=== PATIENT | female | born 1965 | race Caucasian/White ===

== ENCOUNTER 2020-08-18 08:17 | Outpatient (REF) | payer OTHER, SELFPAY ==
--- NOTE | 2020-08-18 08:22 | MM_ITS ---
EXAMINATION: MM SCREENING DIGITAL BREAST TOMOSYNTHESIS, BILATERAL CLINICAL INFORMATION: Screening. Asymptomatic. The lifetime risk of breast cancer based on the Tyrer-Cuzick Model is 11.6%. COMPARISON: Mammography: December 01, 2018 and studies dating back to July 11, 2016 TECHNIQUE: Digital breast tomosynthesis is performed in both the craniocaudal and mediolateral oblique views along with computer-aided detection (CAD). Synthesized 2D images are generated from the tomosynthesis. FINDINGS: The breasts are almost entirely fatty (ACR BI-RADS breast composition Category a). There are no significant masses, abnormal calcifications, or other abnormalities. MM/MM tomosynthesis screening BI IMPRESSION: There are no significant changes from prior study. ASSESSMENT: BI-RADS 1: Negative RECOMMENDATION: Routine annual mammography screening. This patient's information was entered into a reminder system with a target due date for their next mammogram.
== END 2020-08-18 08:18 | disposition home or self-care (01) ==
LOC: HO.MAMMO 08:17
PROVIDERS: PCP Internal Medicine; Visit Provider Internal Medicine
DX: Z12.31 Encounter for screening mammogram for malignant neoplasm of breast (principal)
CPT/HCPCS: 77063; 77067

== ENCOUNTER 2020-09-26 07:16 | Outpatient (REF) | payer OTHER, SELFPAY ==
[2020-09-26 11:16] LABS: MANUAL DIFF FLAG NO
[2020-09-26 11:33] LABS: Basophils Percent Auto 0.4 % (0-2); Eosinophils Absolute Auto 0.2 X10*3/uL (0.0-0.4); Eosinophils Percent Auto 3.3 % (0-4); Hematocrit 31.5 % (37-47); Imm Gran Abs Auto 0.02 X10*3/uL (0.00-0.03); Imm Gran Pct Auto 0.4 % (0.0-0.4); Lymphocytes Absolute Auto 2.1 X10*3/uL (1.2-4.9); Lymphocytes Percent Auto 40.7 % (20-40); Mean Corpuscular HGB Conc 31.7 g/dl (31.0-35.0); Mean Corpuscular Hemoglobin 29.4 pg (27.0-33.0); Mean Corpuscular Volume 92.6 fL (80-98); Mean Platelet Volume 10.2 fL (9.4-12.3); Monocytes Absolute Auto 0.3 X10*3/uL (0.1-1.2); Monocytes Percent Auto 5.6 % (2-11); Neutrophils Absolute Auto 2.6 X10*3/uL (2.0-8.3); Neutrophils Percent Auto 49.6 % (45-73); Platelet Count 331 X10*3/uL (160-400); Red Cell Distribution Width 14.6 % (11.0-16.0); White Blood Count 5.1 X10*3/uL (4.8-10.8)
[2020-09-26 11:55] LABS: Alanine Aminotransferase 18 U/L (0-31); Alkaline Phosphatase 107 U/L (39-117); Anion Gap 11 (12-20); Aspartate Amino Transferase 19 U/L (5-31); Bilirubin Total 0.4 mg/dL (0.0-1.0); Blood Urea Nitrogen 14 mg/dL (9-16); Calcium 8.8 mg/dL (8.4-10.2); Carbon Dioxide 31 mmol/L (22-29); Chloride 102 mmol/L (96-108); Cholesterol 191 mg/dL; Estimated Glomerular Filt Rate > 60; Glucose Fasting 93 mg/dL (60-99); HDL Cholesterol 62 mg/dL; LDL Cholesterol Calculated 114 mg/dl; Potassium 4.8 mmol/l (3.3-5.1); Sodium 139 mmol/L (135-145); Total Protein 7.2 g/dL (6.5-8.0); Triglycerides 78 mg/dL
[2020-09-26 12:06] LABS: Glucose Urine UA NEG (NEG); Leukocyte Esterase Urine TRACE (NEG); Nitrite Urine NEG (NEG); PH 6.5 (5.0-8.0); Specific Gravity - Urine 1.015 (1.005-1.025); Urine Blood NEG (NEG); Urine Ketones NEG (NEG); Urine Protein NEG (NEG-TRACE)
[2020-09-26 12:10] LABS: Appearance Urine CLEAR; Color Urine YELLOW
[2020-09-26 12:19] LABS: Vitamin D 25-OH Total 42.5 ng/mL (>30)
[2020-09-26 12:30] LABS: Bacteria Urine TRACE /LPF; RBC Urine 0 /HPF (0); Renal Epithelial Cells Urine 1+ /LPF; Squamous Epithelial Cell Urine 2+ /LPF
== END 2020-09-26 07:17 | disposition home or self-care (01) ==
LOC: HO.WFDLDS 07:16
PROVIDERS: PCP Internal Medicine; Visit Provider Internal Medicine
DX: J45.20 Mild intermittent asthma, uncomplicated (principal); E55.9 Vitamin D deficiency, unspecified; Z00.00 Encounter for general adult medical examination without abnormal findings; Z78.0 Asymptomatic menopausal state; Z87.898 Personal history of other specified conditions; D50.9 Iron deficiency anemia, unspecified
CPT/HCPCS: 36415; 80053; 80061; 81001; 81003; 82306; 85025

== ENCOUNTER 2020-12-27 10:26 | Outpatient (REF) | payer OTHER, SELFPAY ==
[2020-12-27 10:49] LABS: MANUAL DIFF FLAG NO
[2020-12-27 11:01] LABS: Basophils Percent Auto 0.2 % (0-2); Eosinophils Absolute Auto 0.1 X10*3/uL (0.0-0.4); Eosinophils Percent Auto 1.6 % (0-4); Hematocrit 36.4 % (37-47); Hemoglobin 11.9 g/dl (12.0-16.0); Imm Gran Abs Auto 0.01 X10*3/uL (0.00-0.03); Imm Gran Pct Auto 0.2 % (0.0-0.4); Lymphocytes Absolute Auto 2.6 X10*3/uL (1.2-4.9); Lymphocytes Percent Auto 50.1 % (20-40); Mean Corpuscular HGB Conc 32.7 g/dl (31.0-35.0); Mean Corpuscular Hemoglobin 29.5 pg (27.0-33.0); Mean Corpuscular Volume 90.1 fL (80-98); Mean Platelet Volume 11.6 fL (9.4-12.3); Monocytes Absolute Auto 0.2 X10*3/uL (0.1-1.2); Monocytes Percent Auto 4.7 % (2-11); Neutrophils Absolute Auto 2.2 X10*3/uL (2.0-8.3); Neutrophils Percent Auto 43.2 % (45-73); Platelet Count 192 X10*3/uL (160-400); Red Blood Count 4.04 X10*6/uL (4.20-5.50); Red Cell Distribution Width 14.6 % (11.0-16.0); White Blood Count 5.1 X10*3/uL (4.8-10.8)
[2020-12-27 12:09] LABS: Iron 80 mcg/dL (30-160); Percent Iron Saturation 25 % (15-50); Total Iron Binding Capacity 315 mcg/dL (228-428); Unsaturated Iron Binding 235 ug/dL
== END 2020-12-27 10:27 | disposition home or self-care (01) ==
LOC: HO.LNP 10:26
PROVIDERS: Visit Provider Internal Medicine
DX: D50.9 Iron deficiency anemia, unspecified (principal)
CPT/HCPCS: 83540; 85025

== ENCOUNTER 2021-09-26 16:21 | Outpatient (REF) | payer OTHER, SELFPAY ==
--- NOTE | ~2021-09-26 | MM_ITS ---
EXAMINATION: MM SCREENING DIGITAL BREAST TOMOSYNTHESIS, BILATERAL CLINICAL INFORMATION: Screening. Asymptomatic. The lifetime risk of breast cancer based on the Tyrer-Cuzick Model is 10.8%. COMPARISON: Mammography: August 18, 2020 and studies dating back to July 11, 2016 TECHNIQUE: Digital breast tomosynthesis is performed in both the craniocaudal and mediolateral oblique views along with computer-aided detection (CAD). Synthesized 2D images are generated from the tomosynthesis. FINDINGS: The breasts are almost entirely fatty (ACR BI-RADS breast composition Category a). There are no significant masses, abnormal calcifications, or other abnormalities. MM/MM tomosynthesis screening BI IMPRESSION: There are no significant changes from prior study. ASSESSMENT: BI-RADS 1: Negative RECOMMENDATION: Routine annual mammography screening. This patient's information was entered into a reminder system with a target due date for their next mammogram.
== END 2021-09-26 16:22 | disposition home or self-care (01) ==
LOC: HO.MAMMO 16:21
PROVIDERS: Visit Provider Internal Medicine
DX: Z12.31 Encounter for screening mammogram for malignant neoplasm of breast (principal)
CPT/HCPCS: 77063; 77067

== ENCOUNTER 2021-10-08 10:28 | Outpatient (REF) | payer OTHER, SELFPAY ==
[2021-10-08 10:31] LABS: MANUAL DIFF FLAG NO
[2021-10-08 10:41] LABS: Basophils Percent Auto 0.4 % (0-2); Eosinophils Absolute Auto 0.1 X10*3/uL (0.0-0.4); Hematocrit 37.3 % (37.0-47.0); Hemoglobin 12.2 g/dl (12.0-16.0); Imm Gran Abs Auto 0.01 X10*3/uL (0.00-0.03); Imm Gran Pct Auto 0.2 % (0.0-0.4); Lymphocytes Absolute Auto 2.2 X10*3/uL (1.2-4.9); Lymphocytes Percent Auto 43.8 % (20-40); Mean Corpuscular HGB Conc 32.7 g/dl (31.0-35.0); Mean Corpuscular Volume 91.9 fL (80.0-98.0); Mean Platelet Volume 11.5 fL (9.4-12.3); Monocytes Absolute Auto 0.3 X10*3/uL (0.1-1.2); Monocytes Percent Auto 5.7 % (2-11); Neutrophils Absolute Auto 2.4 x10*3/uL (2.0-8.3); Neutrophils Percent Auto 47.9 % (45-73); Platelet Count 205 X10*3/uL (160-400); Red Blood Count 4.06 X10*6/uL (4.20-5.50); Red Cell Distribution Width 13.6 % (11.0-16.0); White Blood Count 5.1 X10*3/uL (4.8-10.8)
[2021-10-08 10:43] LABS: Appearance Urine HAZY; Color Urine YELLOW; Glucose Urine UA NEG (NEG); Leukocyte Esterase Urine 1+ (NEG); Nitrite Urine NEG (NEG); Specific Gravity - Urine 1.025 (1.005-1.025); Urine Blood NEG (NEG); Urine Ketones NEG (NEG); Urine Protein NEG (NEG-TRACE)
[2021-10-08 10:58] LABS: Squamous Epithelial Cell Urine 1+ /LPF
[2021-10-08 10:59] LABS: Bacteria Urine 1+ /LPF; Mucus Urine 3+ /LPF; Renal Epithelial Cells Urine 1+ /LPF
[2021-10-08 11:38] LABS: Alanine Aminotransferase 20 U/L (0-31); Albumin Level 3.9 g/dL (3.5-5.0); Alkaline Phosphatase 83 U/L (39-117); Anion Gap 11 (12-20); Aspartate Amino Transferase 20 U/L (5-31); Bilirubin Total 0.4 mg/dL (0.0-1.0); Blood Urea Nitrogen 16 mg/dL (9-16); Calcium 9.2 mg/dL (8.4-10.2); Carbon Dioxide 27 mmol/L (22-29); Chloride 107 mmol/L (96-108); Cholesterol 221 mg/dL; Estimated Glomerular Filt Rate > 60; Glucose Fasting 92 mg/dL (60-99); HDL Cholesterol 78 mg/dL; Iron 76 mcg/dL (30-160); LDL Cholesterol Calculated 128 mg/dl; Percent Iron Saturation 25 % (15-50); Potassium 4.3 mmol/L (3.3-5.1); Sodium 141 mmol/L (135-145); Total Iron Binding Capacity 299 mcg/dL (228-428); Total Protein 6.9 g/dL (6.5-8.0); Triglycerides 78 mg/dL; Unsaturated Iron Binding 223 ug/dL
[2021-10-08 12:00] LABS: Vitamin D 25-OH Total 35.1 ng/mL (>30)
== END 2021-10-08 10:29 | disposition home or self-care (01) ==
LOC: HO.LNP 10:28
PROVIDERS: Visit Provider Internal Medicine
DX: Z00.00 Encounter for general adult medical examination without abnormal findings (principal); E55.9 Vitamin D deficiency, unspecified; D50.9 Iron deficiency anemia, unspecified
CPT/HCPCS: 80053; 80061; 81001; 82306; 83540; 85025

== ENCOUNTER 2021-11-12 14:56 | Outpatient (REF) | payer OTHER, SELFPAY ==
--- NOTE | ~2021-11-12 | MM_ITS ---
EXAMINATION: BONE DENSITOMETRY CLINICAL INDICATION: Osteoporosis. COMPARISON: Baseline BD dated 04/20/2018. TECHNIQUE: Using a [employer] DXA System (software version: 13.1) manufactured by [employer], dual-energy x-ray absorptiometry was performed of the lumbar spine and left forearm radius 33%. 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 The images are of good technical quality. Summary results are attached. FINDINGS: AP SPINE L1-L4: Current: BMD 1.219 g/cm2, Z-score 0.5, T-score 0.3, normal, 0.4% decrease from baseline (<5% change is not significant). Baseline: BMD 1.224 g/cm2. LEFT FOREARM RADIUS 33%: BMD 0.813 g/cm2, Z-score -0.1, T-score -0.7, normal, 6.1% decrease from baseline (<5% change is not significant). Baseline: BMD 0.866 g/cm2. IDENTIFIED RISK FACTORS: Height loss, menopause. HISTORY OF FRACTURE: None listed. MEDICATIONS: Calcium supplements or multivitamin, vitamin D. MM/XR DEXA axial skeleton IMPRESSION: 1. DIAGNOSIS: Normal bone density based on the lowest T-score value of -0.7 in the forearm radius 33% applying World Health Organization criteria. 2. 10-YEAR FRACTURE RISK PREDICTION, FRAX: Not performed in this patient without a femoral neck BMD measurement. 3. Treatment Recommendations: NOF guidelines recommend consideration for treatment in postmenopausal women and men age 50 and older presenting with the following: -A hip or vertebral (clinical or morphometric) fracture. -T-score less than or equal to -2.5 at the femoral neck or spine after appropriate evaluation to exclude secondary causes. -Low bone mass at the hip or spine and a 10-year fracture probability by FRAX of greater than or equal to 3% for hip fracture or greater than or equal to 20% for major osteoporotic fracture based on the [place] adapted WHO algorithm. 4. Other Recommendations: All treatment decisions require clinical judgment and consideration of individual patient factors, including patient preferences, comorbidities, previous drug use, risk factors not captured in the FRAX model (e.g. frailty, falls, vitamin D deficiency, increased bone turnover, interval significant decline in bone density) and possible under or overestimation of fracture risk by FRAX. FUTURE SCAN RECOMMENDATION: People with diagnosed cases of osteoporosis or at high risk for fracture should have regular bone mineral density tests. For patients eligible for Medicare, routine testing is allowed once every 2 years. The testing frequency can be increased to one year for patients who have rapidly progressing disease, those who are receiving or discontinuing medical therapy to restore bone mass, or have additional risk factors.
== END 2021-11-12 14:57 | disposition home or self-care (01) ==
LOC: HO.MAMMO 14:56
PROVIDERS: PCP Internal Medicine; Visit Provider Internal Medicine
DX: Z13.820 Encounter for screening for osteoporosis (principal); Z78.0 Asymptomatic menopausal state; Z79.899 Other long term (current) drug therapy
CPT/HCPCS: 77080

== ENCOUNTER 2022-10-09 10:32 | Outpatient (REF) | payer OTHER, SELFPAY ==
[2022-10-09 10:36] LABS: MANUAL DIFF FLAG NO
[2022-10-09 10:45] LABS: Basophils Percent Auto 0.4 % (0-2); Eosinophils Absolute Auto 0.1 X10*3/uL (0.0-0.4); Eosinophils Percent Auto 1.9 % (0-4); Hematocrit 36.3 % (37.0-47.0); Hemoglobin 12.2 g/dl (12.0-16.0); Imm Gran Abs Auto 0.01 X10*3/uL (0.00-0.03); Imm Gran Pct Auto 0.2 % (0.0-0.4); Lymphocytes Absolute Auto 2.2 X10*3/uL (1.2-4.9); Lymphocytes Percent Auto 45.5 % (20-40); Mean Corpuscular HGB Conc 33.6 g/dl (31.0-35.0); Mean Corpuscular Hemoglobin 30.8 pg (27.0-33.0); Mean Corpuscular Volume 91.7 fL (80.0-98.0); Monocytes Absolute Auto 0.3 X10*3/uL (0.1-1.2); Monocytes Percent Auto 6.5 % (2-11); Neutrophils Absolute Auto 2.2 x10*3/uL (2.0-8.3); Neutrophils Percent Auto 45.5 % (45-73); Platelet Count 201 X10*3/uL (160-400); Red Blood Count 3.96 X10*6/uL (4.20-5.50); Red Cell Distribution Width 13.3 % (11.0-16.0); White Blood Count 4.8 X10*3/uL (4.8-10.8)
[2022-10-09 10:59] LABS: Appearance Urine Cloudy; Color Urine Yellow; Glucose Urine UA Negative (Negative); Leukocyte Esterase Urine Small (1+) (Negative); Nitrite Urine Negative (Negative); PH 7.5 (5.0-9.0); Specific Gravity - Urine 1.015 (1.005-1.025); UMIC TRIGGER UA YES; Urine Blood Negative (Negative); Urine Ketones Negative (Negative); Urine Protein Negative (Neg-Trace)
[2022-10-09 11:02] LABS: Alanine Aminotransferase 15 U/L (0-31); Alkaline Phosphatase 81 U/L (39-117); Anion Gap 12 (12-20); Aspartate Amino Transferase 19 U/L (5-31); Bilirubin Total 0.4 mg/dL (0.0-1.0); Blood Urea Nitrogen 20 mg/dL (9-16); Carbon Dioxide 29 mmol/L (22-29); Chloride 102 mmol/L (96-108); Cholesterol 228 mg/dL; Estimated Glomerular Filt Rate > 60; Glucose Fasting 104 mg/dL (60-99); HDL Cholesterol 72 mg/dL; Iron 80 mcg/dL (30-160); LDL Cholesterol Calculated 141 mg/dl; Percent Iron Saturation 27 % (15-50); Potassium 4.4 mmol/L (3.3-5.1); Sodium 139 mmol/L (135-145); Total Iron Binding Capacity 297 mcg/dL (228-428); Total Protein 6.9 g/dL (6.5-8.0); Triglycerides 79 mg/dL; Unsaturated Iron Binding 217 ug/dL
[2022-10-09 11:07] LABS: Bacteria Urine 1+ (None Seen); Hyaline Casts Urine 0-2 /LPF (0-2); Squamous Epithelial Cell Urine 0-2 /HPF (0-2); WBC Urine 0-5 /HPF (0-5)
[2022-10-09 11:23] LABS: Vitamin D 25-OH Total 39.4 ng/mL (>30)
== END 2022-10-09 10:33 | disposition home or self-care (01) ==
LOC: HO.LNP 10:32
PROVIDERS: PCP Internal Medicine; Visit Provider Internal Medicine
DX: Z00.00 Encounter for general adult medical examination without abnormal findings (principal); E55.9 Vitamin D deficiency, unspecified; D50.9 Iron deficiency anemia, unspecified
CPT/HCPCS: 80053; 80061; 81001; 82306; 83540; 85025

== ENCOUNTER 2022-10-16 09:58 | Outpatient (REF) | payer OTHER, SELFPAY ==
--- NOTE | ~2022-10-16 | MM_ITS ---
EXAMINATION: MM SCREENING DIGITAL BREAST TOMOSYNTHESIS, BILATERAL CLINICAL INFORMATION: Screening. Asymptomatic. The lifetime risk of breast cancer based on the Tyrer-Cuzick Model is 9%. COMPARISON: Mammography: 09/26/2021, 08/18/2020, 12/01/2018 TECHNIQUE: Digital breast tomosynthesis is performed in both the craniocaudal and mediolateral oblique views along with computer-aided detection (CAD). Synthesized 2D images are generated from the tomosynthesis. FINDINGS: There are scattered areas of fibroglandular density (ACR BI-RADS breast composition Category b). There are no significant masses, abnormal calcifications, or other abnormalities. Background stromal markings are stable. No developing density or architectural abnormality. The axilla and skin contours are unremarkable. MM/MM tomosynthesis screening BI IMPRESSION: No mammographic evidence of malignancy. ASSESSMENT: BI-RADS 1: Negative RECOMMENDATION: Routine annual mammography screening. This patient's information was entered into a reminder system with a target due date for their next mammogram.
== END 2022-10-16 09:59 | disposition home or self-care (01) ==
LOC: HO.MAMMO 09:58
PROVIDERS: PCP Internal Medicine; Visit Provider Internal Medicine
DX: Z12.31 Encounter for screening mammogram for malignant neoplasm of breast (principal)
CPT/HCPCS: 77063; 77067

== ENCOUNTER 2022-12-15 11:09 | Outpatient (REF) | payer OTHER, SELFPAY ==
[2022-12-15 11:55] LABS: Appearance Urine Clear; Color Urine Yellow; Glucose Urine UA Negative (Negative); Leukocyte Esterase Urine Small (1+) (Negative); Nitrite Urine Negative (Negative); UMIC TRIGGER UACC YES; Urine Blood Negative (Negative); Urine Ketones Negative (Negative); Urine Protein Negative (Neg-Trace)
[2022-12-15 12:08] LABS: Bacteria Urine None Seen (None Seen); Hyaline Casts Urine 0-2 /LPF (0-2); RBC Urine 0-2 /HPF (0-2); Squamous Epithelial Cell Urine 0-2 /HPF (0-2); UACC Culture Trigger YES; WBC Urine 0-5 /HPF (0-5)
== END 2022-12-15 11:10 | disposition home or self-care (01) ==
LOC: HO.LNP 11:09
PROVIDERS: Visit Provider Internal Medicine
DX: R31.9 Hematuria, unspecified (principal)
CPT/HCPCS: 81001; 87086

== ENCOUNTER 2023-08-17 15:55 | Outpatient (REF) | payer OTHER, SELFPAY ==
--- NOTE | ~2023-08-17 | XR_ITS ---
EXAMINATION: XR KNEE, LEFT CLINICAL INFORMATION: Left knee pain COMPARISON: None available. TECHNIQUE: Three views of the left knee. FINDINGS: There is no evidence of fracture or dislocation. There is narrowing cough medial compartment of left knee joint with mild marginal spurring medially, narrowing of patellofemoral compartment and small joint effusion. XR/XR knee LT 3V IMPRESSION: Mild degenerative changes of left knee joint with joint effusion
== END 2023-08-17 15:56 | disposition home or self-care (01) ==
LOC: HO.XRAY 15:55
PROVIDERS: PCP Internal Medicine; Visit Provider Internal Medicine
DX: S83.242A Other tear of medial meniscus, current injury, left knee, initial encounter (principal)
CPT/HCPCS: 73562

== ENCOUNTER 2023-10-13 11:08 | Outpatient (REF) | payer OTHER, SELFPAY ==
[2023-10-13 11:33] LABS: MANUAL DIFF FLAG NO
[2023-10-13 12:02] LABS: Appearance Urine Clear; Color Urine Yellow; Glucose Urine UA Negative (Negative); Leukocyte Esterase Urine Trace (Negative); Nitrite Urine Negative (Negative); PH 5.5 (5.0-9.0); Specific Gravity - Urine 1.015 (1.005-1.025); UMIC TRIGGER UACC YES; Urine Blood Negative (Negative); Urine Ketones Negative (Negative); Urine Protein Negative (Neg-Trace)
[2023-10-13 12:04] LABS: Basophils Percent Auto 0.6 % (0-2); Eosinophils Absolute Auto 0.1 X10*3/uL (0.0-0.4); Eosinophils Percent Auto 1.6 % (0-4); Hematocrit 37.5 % (37.0-47.0); Hemoglobin 12.5 g/dl (12.0-16.0); Imm Gran Abs Auto 0.01 X10*3/uL (0.00-0.03); Imm Gran Pct Auto 0.2 % (0.0-0.4); Lymphocytes Absolute Auto 2.3 X10*3/uL (1.2-4.9); Lymphocytes Percent Auto 45.1 % (20-40); Mean Corpuscular HGB Conc 33.3 g/dl (31.0-35.0); Mean Corpuscular Hemoglobin 30.1 pg (27.0-33.0); Mean Corpuscular Volume 90.4 fL (80.0-98.0); Mean Platelet Volume 11.5 fL (9.4-12.3); Monocytes Absolute Auto 0.2 X10*3/uL (0.1-1.2); Monocytes Percent Auto 4.8 % (2-11); Neutrophils Absolute Auto 2.4 x10*3/uL (2.0-8.3); Neutrophils Percent Auto 47.7 % (45-73); Platelet Count 208 X10*3/uL (160-400); Red Blood Count 4.15 X10*6/uL (4.20-5.50); Red Cell Distribution Width 13.2 % (11.0-16.0)
[2023-10-13 12:07] LABS: Bacteria Urine None Seen (None Seen); Hyaline Casts Urine 0-2 /LPF (0-2); RBC Urine 0-2 /HPF (0-2); Squamous Epithelial Cell Urine 0-2 /HPF (0-2); WBC Urine 0-5 /HPF (0-5)
[2023-10-13 12:28] LABS: Alanine Aminotransferase 16 U/L (0-31); Alkaline Phosphatase 85 U/L (39-117); Anion Gap 11 (12-20); Aspartate Amino Transferase 23 U/L (5-31); Bilirubin Total 0.4 mg/dL (0.0-1.0); Blood Urea Nitrogen 16 mg/dL (9-16); Calcium 9.3 mg/dL (8.4-10.2); Carbon Dioxide 27 mmol/L (22-29); Chloride 105 mmol/L (96-108); Cholesterol 230 mg/dL (<200); Estimated Glomerular Filt Rate > 60; Glucose Fasting 87 mg/dL (60-99); HDL Cholesterol 77 mg/dL (>40); Iron 107 mcg/dL (30-160); LDL Cholesterol Calculated 136 mg/dL (<100); Percent Iron Saturation 39 % (15-50); Potassium 4.2 mmol/L (3.3-5.1); Sodium 139 mmol/L (135-145); Total Iron Binding Capacity 273 mcg/dL (228-428); Total Protein 7.4 g/dL (6.5-8.0); Triglycerides 89 mg/dL (<150); Unsaturated Iron Binding 166 ug/dL
[2023-10-13 12:46] LABS: Vitamin D 25-OH Total 59.6 ng/mL (>30)
== END 2023-10-13 11:09 | disposition home or self-care (01) ==
LOC: HO.LNP 11:08
PROVIDERS: Visit Provider Internal Medicine
DX: Z00.00 Encounter for general adult medical examination without abnormal findings (principal); E55.9 Vitamin D deficiency, unspecified; D50.9 Iron deficiency anemia, unspecified
CPT/HCPCS: 80053; 80061; 81001; 82306; 83540; 85025

== ENCOUNTER 2023-10-21 09:04 | Outpatient (REF) | payer OTHER, SELFPAY | END 2023-10-21 09:05 | disposition home or self-care (01) | LOC: HO.MAMMO 09:04 | PROVIDERS: PCP Internal Medicine; Visit Provider Internal Medicine | DX: Z12.31 Encounter for screening mammogram for malignant neoplasm of breast (principal) | CPT/HCPCS: 77063; 77067 ==

== ENCOUNTER → 2023-10-21 09:15 | Outpatient (BNV) | payer OTHER, SELFPAY | PROVIDERS: PCP Internal Medicine; Visit Provider Radiology Diagnostic Radiology | DX: Z12.31 Encounter for screening mammogram for malignant neoplasm of breast (principal) | CPT/HCPCS: 77063; 77067 ==

== ENCOUNTER 2024-10-17 11:40 | Outpatient (REF) | payer OTHER, SELFPAY ==
[2024-10-17 11:45] LABS: MANUAL DIFF FLAG NO
[2024-10-17 12:04] LABS: Basophils Percent Auto 0.4 % (0-2); Eosinophils Absolute Auto 0.1 X10*3/uL (0.0-0.4); Eosinophils Percent Auto 2.5 % (0-4); Hematocrit 37.3 % (37.0-47.0); Hemoglobin 12.2 g/dl (12.0-16.0); Imm Gran Abs Auto 0.01 X10*3/uL (0.00-0.03); Imm Gran Pct Auto 0.2 % (0.0-0.4); Lymphocytes Percent Auto 41.3 % (20-40); Mean Corpuscular HGB Conc 32.7 g/dl (31.0-35.0); Mean Corpuscular Hemoglobin 30.7 pg (27.0-33.0); Mean Corpuscular Volume 93.7 fL (80.0-98.0); Mean Platelet Volume 11.5 fL (9.4-12.3); Monocytes Absolute Auto 0.3 X10*3/uL (0.1-1.2); Monocytes Percent Auto 5.4 % (2-11); Neutrophils Absolute Auto 2.4 x10*3/uL (2.0-8.3); Neutrophils Percent Auto 50.2 % (45-73); Platelet Count 195 X10*3/uL (160-400); Red Blood Count 3.98 X10*6/uL (4.20-5.50); Red Cell Distribution Width 13.5 % (11.0-16.0); White Blood Count 4.8 X10*3/uL (4.8-10.8)
[2024-10-17 12:06] LABS: Appearance Urine Clear; Color Urine Yellow; Glucose Urine UA Negative (Negative); Leukocyte Esterase Urine Negative (Negative); Nitrite Urine Negative (Negative); PH 6.5 (5.0-9.0); Urine Blood Negative (Negative); Urine Ketones Negative (Negative); Urine Protein Negative (Neg-Trace)
[2024-10-17 12:13] LABS: Bacteria Urine None Seen (None Seen); Hyaline Casts Urine 0-2 /LPF (0-2); RBC Urine 0-2 /HPF (0-2); Squamous Epithelial Cell Urine 0-2 /HPF (0-2); WBC Urine 0-5 /HPF (0-5)
[2024-10-17 13:23] LABS: Alanine Aminotransferase 16 U/L (0-31); Albumin Level 3.9 g/dL (3.5-5.0); Alkaline Phosphatase 77 U/L (39-117); Anion Gap 12 (12-20); Aspartate Amino Transferase 23 U/L (5-31); Bilirubin Total 0.4 mg/dL (0.0-1.0); Blood Urea Nitrogen 14 mg/dL (9-16); Carbon Dioxide 27 mmol/L (22-29); Chloride 107 mmol/L (96-108); Cholesterol 212 mg/dL (<200); Estimated Glomerular Filt Rate > 60; Glucose Fasting 87 mg/dL (60-99); HDL Cholesterol 70 mg/dL (>40); Iron 74 mcg/dL (30-160); LDL Cholesterol Calculated 129 mg/dL (<100); Percent Iron Saturation 32 % (15-50); Potassium 4.5 mmol/L (3.3-5.1); Sodium 141 mmol/L (135-145); Total Iron Binding Capacity 230 mcg/dL (228-428); Total Protein 7.2 g/dL (6.5-8.0); Triglycerides 65 mg/dL (<150); Unsaturated Iron Binding 156 ug/dL; Vitamin D 25-OH Total 39.4 ng/mL (>30)
== END 2024-10-17 11:41 | disposition home or self-care (01) ==
LOC: HO.LNP 11:40
PROVIDERS: Visit Provider Internal Medicine
DX: Z00.00 Encounter for general adult medical examination without abnormal findings (principal); E55.9 Vitamin D deficiency, unspecified; D50.9 Iron deficiency anemia, unspecified
CPT/HCPCS: 80053; 80061; 81001; 82306; 83540; 85025

== ENCOUNTER 2024-10-24 07:35 | Outpatient (REF) | payer OTHER, SELFPAY | END 2024-10-24 07:36 | disposition home or self-care (01) | LOC: HO.MAMMO 07:35 | PROVIDERS: PCP Internal Medicine; Visit Provider Internal Medicine | DX: Z12.31 Encounter for screening mammogram for malignant neoplasm of breast (principal) | CPT/HCPCS: 77063; 77067 ==

== ENCOUNTER → 2024-10-24 07:45 | Outpatient (BNV) | payer OTHER, SELFPAY | PROVIDERS: PCP Internal Medicine; Visit Provider Internal Medicine | DX: Z12.31 Encounter for screening mammogram for malignant neoplasm of breast (principal) | CPT/HCPCS: 77063; 77067 ==

== ENCOUNTER 2024-11-22 10:48 | Outpatient (REF) | payer OTHER, SELFPAY ==
[2024-11-22 11:27] LABS: Appearance Urine Clear; Color Urine Yellow; Glucose Urine UA Negative (Negative); Leukocyte Esterase Urine Large (3+) (Negative); Nitrite Urine Negative (Negative); PH 5.5 (5.0-9.0); Specific Gravity - Urine 1.015 (1.005-1.025); UMIC TRIGGER UACC YES; Urine Blood Negative (Negative); Urine Ketones Negative (Negative); Urine Protein Negative (Neg-Trace)
[2024-11-22 11:34] LABS: Bacteria Urine None Seen (None Seen); Hyaline Casts Urine 0-2 /LPF (0-2); RBC Urine 0-2 /HPF (0-2); Squamous Epithelial Cell Urine 0-2 /HPF (0-2); UACC Culture Trigger YES; WBC Urine >50 /HPF (0-5)
--- OUTSIDE RECORDS SUMMARY | 2024-11-22 12:05 | XMS_ITS ---
Author Organization Anton Kathleen MD Address [address] [place] [phone] Care Team Providers Care Housing Project Manager Name Role Phone Anton Kathleen Primary Care Provider [phone] Results Component Value Reference Range Notes Complete Blood Count Auto Di ff Reviewed date:10/17/2024 06:04:04 PM Interpretation: Performing Lab:[facility], [address] [place] [phone] Notes/Report: White Blood Count 4.8 4.8-10.8 X10*3/uL Red Blood Count 3.98 4.20-5.50 X10*6/uL Hemoglobin 12.2 12.0-16.0 g/dl Hematocrit 37.3 37.0-47.0 % Mean Corpuscular Volume 93.7 80.0-98.0 fL Mean Corpuscular Hemoglobin 30.7 27.0-33.0 pg Mean Corpuscular HGB Conc 32.7 31.0-35.0 g/dl Red Cell Distribution Width 13.5 11.0-16.0 % Platelet Count 195 160-400 X10*3/uL Mean Platelet Volume 11.5 9.4-12.3 fL Neutrophils Percent Auto 50.2 45-73 % Imm Gran Pct Auto 0.2 0.0-0.4 % Lymphocytes Percent Auto 41.3 20-40 % Monocytes Percent Auto 5.4 2-11 % Eosinophils Percent Auto 2.5 0-4 % Basophils Percent Auto 0.4 0-2 % NRBC Pct Auto 0.0 0.0-0.2 /100WBC Neutrophils Absolute Auto 2.4 2.0-8.3 x10*3/u L Imm Gran Abs Auto 0.01 0.00-0.03 X10*3/uL Lymphocytes Absolute Auto 2.0 1.2-4.9 X10*3/u L Monocytes Absolute Auto 0.3 0.1-1.2 X10*3/uL Eosinophils Absolute Auto 0.1 0.0-0.4 X10*3/u L Basophils Absolute Auto 0.0 0.0-0.2 X10*3/uL NRBC Abs Auto 0.000 0.0-0.012 X10*3/uL [facility] [place]. Panel Fa st Reviewed date:10/17/2024 06:00:16 PM Interpretation: Performing Lab:[facility], [address] [place] [phone] Notes/Report: Sodium 141 135-145 mmol/L Potassium 4.5 3.3-5.1 mmol/L Chloride 107 96-108 mmol/L Carbon Dioxide 27 22-29 mmol/L Anion Gap 12 12-20 Blood Urea Nitrogen 14 9-16 mg/dL Creatinine 0.75 0.5-1.4 mg/dL Estimated Glomerular Filt Rate > 60 Chronic Kidney Disease: Estimated GFR < 60 mL/min/1.73m2 Severe Kidney Disease: Estimated GFR < 15 mL/min/1.73m2 Glucose Fasting 87 60-99 mg/dL Calcium 9.0 8.4-10.2 mg/dL Bilirubin Total 0.4 0.0-1.0 mg/dL Aspartate Amino Transferase 23 5-31 U/L Alanine Aminotransferase 16 0-31 U/L Total Protein 7.2 6.5-8.0 g/dL Albumin Level 3.9 3.5-5.0 g/dL Alkaline Phosphatase 77 39-117 U/L IRON PROFILE Reviewed date:10/17/2024 05:58:14 PM Interpretation: Performing Lab:[facility], [address] [place] [phone] Notes/Report: Iron 74 30-160 mcg/dL Total Iron Binding Capacity 230 228-428 mcg/d L Percent Iron Saturation 32 15-50 % Unsaturated Iron Binding 156 Lipid Panel Reviewed date:10/17/2024 05:59:51 PM Interpretation: Performing Lab:[facility], [address] [place] [phone] Notes/Report: Triglycerides 65 <150 mg/dL Desirable Triglyceride: less than 150 mg/dL Borderline High Triglyceride 150-199 mg/dL High Triglyceride: 200-499 mg/dL Very High Triglyceride: greater than or equal to 5OO mg/dL Cholesterol 212 <200 mg/dL Desirable Cholesterol: less than 200 mg/dL Borderline High Cholesterol: 200-239 mg/dL High Cholesterol: greater than 239 mg/dL LDL Cholesterol Calculated 129 <100 mg/dL Desirable LDL: less than 100 mg/dL Near Optimal/Above Optimal LDL: 110-129 mg/dL Borderline High LDL: 130-159 mg/dL High LDL: 160-189 mg/dL Very High LDL: greater than or equal to 190 mg/dL HDL Cholesterol 70 >40 mg/dL Desirable HDL: greater than 40 mg/dL Note: This HDL assay may give artificially low results in patients with liver disease. Vitamin D 25-OH Total Reviewed date:10/17/2024 05:57:41 PM Interpretation: Performing Lab:[facility], [address] [place] [phone] Notes/Report: Vitamin D 25-OH Total 39.4 >30 ng/mL Health Based Reference Values* < 20 ng/mL Deficient 20-30 ng/mL Insufficient > 30 ng/mL Sufficient *Lauren MITCHELL. N Engl J Med. 2007;357:266-280 Care must be taken in interpreting Vitamin D results from different laboratories and methodologies. Published data demonstrated that results from patients undergoing hemodialysis may show a negative bias when tested with various automated 25-OH vitamin D assays when compared to LC-MS/MS. When testing samples from patients whose predominant form of Vitamin D is Vitamin D2, such as patients receiving Vitamin D2 supplementation, results that are subtherapeutic should be confirmed with another method such as LC-MS/MS. UA ClnCatch+Micro w/rflx Cul t Reviewed date:10/17/2024 05:58:03 PM Interpretation: Performing Lab:[facility], [address] [place] [phone] Notes/Report: Urine, Clean Catch Color Urine Yellow Appearance Urine Clear PH 6.5 5.0-9.0 Glucose Urine UA Negative Negative mg/dL Urine Blood Negative Negative Specific Steele - Urine 1.010 1.005-1.025 Urine Protein Negative Neg-Trace mg/dL Urine Ketones Negative Negative mg/dL Nitrite Urine Negative Negative Leukocyte Esterase Urine Negative Negative RBC Urine 0-2 0-2 /HPF WBC Urine 0-5 0-5 /HPF Squamous Epithelial Cell Urine 0-2 0-2 /HPF Bacteria Urine None Seen None Seen Hyaline Casts Urine 0-2 0-2 /LPF REASON FOR VISIT yearly fasting labs Encounters Encounter Location Date Provider Diagnosis Anton Kathleen MD [address] [place] [phone] 10/17/2024 Anton Kathleen Routine physicl lab exam Z00.00 ; Vitamin D deficiency E55.9 and Iron deficiency anemia, unspecified iron deficiency anemia type D50.9 Assessments Encounter Date Diagnosis (ICD Code) Assessment Notes Treatment Notes Treatment Clinical Notes Section Notes 10/17/2024 Routine physicl lab exam (ICD-10 - Z00.00) 10/17/2024 Vitamin D deficiency (ICD-10 - E55.9) 10/17/2024 Iron deficiency anemia, unspecified iron deficiency anemia type (ICD-10 - D50.9) Plan Of Treatment Next Appt Details Provider Name:Anton jc, 10/20/2025 07:30:00 AM, [address] [place] [address], [place] [address], [place], [phone], Provider Name:Anton jc, 10/27/2025 08:00:00 AM, [address] [place] [address], [address], [phone], Progress Notes * Kierra DE LA CRUZ GDOB:1964 (59 yo F)Acc No.[id number]:10/17/2024 Progress Note Patient:?Kierra DE LA CRUZ Provider:?Anton Kathleen MD :1965???Age:59 Y???Sex:Female D ate:10/17/2024 Address:[address] [place], [place] [address] [id number] Subjective: * Chief Complaints: * ???1. Yearly fasting labs. * Medical History:? Objective: * Vitals:? Assessment: * Assessment: 1.?Routine physicl lab exam - Z00.00 (Primary)???2.?Vitamin D deficiency - E55.9???3.?Iron deficiency anemia, unspecified iron deficiency anemia type - D50.9??? Plan: * Treatment: 2.?Vitamin D deficiency?LAB: Complete Blood Count Auto Diff (Collection Date & Time - 10/17/2024 07:00 AM) ?LAB: [facility] [place]. Panel Fast (Collection Date & Time - 10/17/2024 07:00 AM) ?LAB: IRON PROFILE (Collection Date & Time - 10/17/2024 07:00 AM) ?LAB: Lipid Panel (Collection Date & Time - 10/17/2024 07:00 AM) ?LAB: Vitamin D 25-OH Total (Collection Date & Time - 10/17/2024 07:00 AM) ?LAB: ClnCatch+Micro w/rflx Cult (Collection Date & Time - 10/17/2024 07:00 AM) 3.?Iron deficiency anemia, u nspecified iron deficiency anemia type?LAB: Complete Blood Count Auto Diff (Collection Date & Time - 10/17/2024 07:00 AM) ?LAB: [facility] [place]. Panel Fast (Collection Date & Time - 10/17/2024 07:00 AM) ?LAB: IRON PROFILE (Collection Date & Time - 10/17/2024 07:00 AM) ?LAB: Lipid Panel (Collection Date & Time - 10/17/2024 07:00 AM) ?LAB: Vitamin D 25-OH Total (Collection Date & Time - 10/17/2024 07:00 AM) ?LAB: UA ClnCatch+Micro w/rflx Cult (Collection Date & Time - 10/17/2024 07:00 AM) * Procedure Codes:?75946 VENIP UNCT, ROUTINE* * * The named appointment provid er may or may not be the originator of this progress note, and it is not deemed complete until electronically signed by the appointment provider. Sign off status: Pending * Provider:?Anton Kathleen MD Date:?0 10/17/2024 Generated for Shiela perla/Ricci/Burakitting on:?11/22/2024 12:05 PM EST
--- OUTSIDE RECORDS SUMMARY | 2024-11-22 12:05 | XMS_ITS ---
Author Organization Anton Kathleen MD Address [address] [place] [phone] Care Team Providers Care Database Software Technician Name Role Phone Atnon Kathleen Primary Care Provider Allergies Allergen (clinical drug ingredient) Drug/Non Drug Allergy documented on EMR Reaction Allergy Type Onset Date Status Porcine derived substance (substance) Pork (uncoded) itchy Allergy Acti ve azithromycin Z Donovan (uncoded) hives Allergy A ctive keflex (uncoded) welts Allergy Act mello 12 Hour Nasal [place] Unknown Drug Allergy Active peanutbutter (uncoded) excema Allergy Active brazil nuts (uncoded) anaphylaxis Allergy Active Shellfish (FN) shellfish (uncoded) anaphylaxis Allergy Active Beef derivative (FN) beef (uncoded) flushing Allergy Active REASON FOR VISIT annual visit Medications Medication SIG (Take, Route, Frequency, Duration) Notes Start Date End Date Status Flonase Allergy Relief 50 MCG/ACT 1 spray in each nostril Nasally Once a day Active ZyrTEC Allergy 10 MG 1 tablet Orally Onc e a day for 30 day(s) Not-Taking Singulair 10 MG 1 tablet in the even ing Orally Once a day Active predniSONE 10 MG 1 tablet with food o r milk Orally 4 tabs for 3 days,3tabs for 3 days, 2 tabs for 3 days, and 1 tab for 3 days for 14 days 11/04/2021 Not-Taking ProAir HFA 108 (90 Base) MCG/ACT 2 puffs as needed Inhalation every 4 hrs for 90 days 06/20/2011 Not-Taking EpiPen Not-Taking Social History Tobacco Use: Social History Observation Description Date Details (start date - stop date) Never Smoker NA - NA Tobacco Use/Smoking Question Answer Notes Patient is a nonsmoker Additional Findings: Tobacco Non-User Cu rrent non-smoker, currently using no form of tobacco Alcohol Screen Question Answer Notes Did you have a drink containing alcohol in the p ast year? No Points 0 Interpretation Negative Vital Signs Blood pressure systolic 92 mm Hg 10/24/19 25 Blood pressure diastolic 60 mm Hg 025 Height 66 in 10/24/2024 Weight 186 lbs 10/24/2024 BMI 30.02 kg/m2 10/24/2024 weight is down 9 pounds [facility] 10-19-23 Encounters Encounter Location Date Provider Diagnosis Anton Kathleen MD [address] [place] [address] Drive [address] [place], [place] [phone] 10/24/2024 Anton Kathleen Mild intermittent asthma without complication J45.20 ; Annual physical exam Z00.00 ; Vitamin D deficiency E55.9 ; Iron deficiency anemia, unspecified iron deficiency anemia type D50.9 and Depression screening Z13.31 Assessments Encounter Date Diagnosis (ICD Code) Assessment Notes Treatment Notes Treatment Clinical Notes Section Notes 10/24/2024 Mild intermittent asthma without complication (ICD-10 - J45.20) doing great. no problems, will continue current regiment 10/24/2024 Annual physical exam (ICD-10 - Z00.00) labs reviewed and discussed with patient 10/24/2024 Vitamin D deficiency (ICD-10 - E55.9) good vit d level, will continue current regiment 10/24/2024 Iron deficiency anemia, unspecified iron deficiency anemia type (ICD-10 - D50.9) resolved 10/24/2024 Depression screening (ICD-10 - Z13.31) negative screen Plan Of Treatment Medication Medication Name Sig Start Date Stop Date Notes Flonase Allergy Relief 50 MCG/ACT 1 spray in each nostril Nasally Once a day Singulair 10 MG 1 tablet in the even ing Orally Once a day Treatment Notes Assessment Notes Mild intermittent asthma wit hout complication doing great. no problems, will continue current regiment Annual physical exam labs reviewed and d iscussed with patient Vitamin D deficiency good vit d level, w ill continue current regiment Iron deficiency anemia, unsp ecified iron deficiency anemia type resolved Depression screening negative screen Next Appt Details Provider Name:Anton Hernandez ier, 10/20/2025 07:30:00 AM, [address] [facility], [address], [place], [place], [phone], Provider Name:Anton Hernandez ier, 10/27/2025 08:00:00 AM, [address] [facility], [address], [place], [place], [phone], Progress Notes * Kierra DE LA CRUZ GDOB:1964 (59 yo F)Acc No.[id number]:10/24/2024 Progress Notes Patient:?Kierra De La Cruz Provider:?Anton Kathleen MD :1965???Age:59 Y???Sex:Female D ate:10/24/2024 Address:[address] [place] [address] [place], [id number] Subjective: * Chief Complaints: * ???Annual visit * HPI: ???Depression Screening:?PHQ-9?Little interest or pleasure in doing things?Not at all,?Feeling down, depressed, or hopeless?Not at all,?Trouble falling or staying asleep, or sleeping too much?Not at all,?Feeling tired or having little energy?Not at all,?Poor appetite or overeating?Not at all,?Feeling bad about yourself or that you are a failure, or have let yourself or your family down?Not at all,?Trouble concentrating on things, such as reading the newspaper or watching television?Not at all,?Moving or speaking so slowly that other people could have noticed; or the opposite, being so fidgety or restless that you have been moving around a lot more than usual?Not at all,?Thoughts that you would be better off or of hurting yourself in some way?Not at all,?Total Score?0.?Interpretation and Intervention?Depression Screening Findings?Negative,?Follow-Up for Depression?: review of PHQ-9 found negative result, no follow-up needed.?Communication Needs:?Communication Needs?Does the patient have a hearing impairment?No,?Does the patient have a vision impairment??Yes,?If yes, what is the vision impairment??Glasses,?Does the patient have a cognition impairment??No.?SDOH Questions:?SDOH Questions?In the past year have you been worried about losing housing??No,?In the past year have you or any family members you live with been unable to get any of the following when it was really needed? Check all that apply:?None.?Symptom(s):? patient is a 59 yo female here for annual visit with review of recent labs and follow up of chronic issues. . has sore knee. found to have torn meniscuss , sore rt shoulder and at times arm gets numb. * ROS:?General/Constitutional:?Patient denies?fatigue , headache.?Change in appetite?denies.?Chills?denies.?Fever?denies.?Ophthalmologic:?Blurred vision?denies.?Discharge?denies.?Pain?denies.?ENT:?Patient denies?decreased sense of smell , any loss of taste , sore throat.?Decreased hearing?denies.?Sore throat?denies.?Swollen glands?denies.?Endocrine:?Cold intolerance?denies.?Excessive thirst?denies.?Heat intolerance?denies.?Weight loss?denies.?Respiratory:?Cough?denies.?Shortness of breath at rest?denies.?Shortness of breath with exertion?denies.?Wheezing?denies.?Cardiovascular:?Chest pain at rest?denies.?Chest pain with exertion?denies.?Irregular heartbeat?denies.?Shortness of breath?denies.?Gastrointestinal:?Abdominal pain?denies.?Change in bowel habits?denies.?Diarrhea?denies.?Nausea?denies.?Rectal bleeding?denies.?Vomiting?denies .?Genitourinary:?Blood in urine?denies.?Difficulty urinating?denies.?Frequent urination?denies.?Urinary incontinence?Denies.?Musculoskeletal:?Patient denies?muscle aches.?Painful joints?denies.?Weakness?denies.?Peripheral Vascular:?Patient denies?red and blue toes.?Skin:?Dry skin?denies.?Itching?denies.?Denies?Mole(s),? changes in moles, new moles or any lesions of concern.?Denies?Photosensitivity.?Rash?denies.?Neurologic:?Dizziness?denies.?Fainting?denies.?Headache?denies.? * Medical History:? * Surgical History:? * Hospitalization/Major Diagno stic Procedure:? * Family History:?Father: daksha saeed 81 yrs, diagnosed with Hypertension.?Mother: alive 79 yrs.?2 brother(s) . 1 daughter(s) . .? Father-Cardiac Mother-Healthy, No pertinent family medical history, Denies mental health/ mother's family alcoholism, Denies mental health/substance abuse family history, No pertinent family medical history. * Social History:?Tobacco Use:?Tobacco Use/Smoking?Patient is a?nonsmoker,?Additional Findings: Tobacco Non-User?Current non-smoker, currently using no form of tobacco.?Drugs/Alcohol:?Alcohol Screen?Did you have a drink containing alcohol in the past year??No,?Points?0,?Interpretation?Negative.?Miscellaneous:?Caffeine: yes, frequency:, 3-4 cups per day. Children: yes. Exercise: yes, yard work. Home smoke detector use: yes. Housing: owning. Living with: spouse, family. Marital status: . Occupation: weeks/months/years, works full-time. Pets: 10 chickens. Travel outside of the [place]: yes, [place]. * Medications:?TakingFlonase A llergy Relief 50 MCG/ACT Suspension 1 spray in each nostril Nasally Once a daySingulair 10 MG Tablet 1 tablet in the evening Orally Once a dayTaking Flonase Allergy Relief 50 MCG/ACT Suspension 1 spray in each nostril Nasally Once a dayTaking Singulair 10 MG Tablet 1 tablet in the evening Orally Once a dayNot-Taking/PRNEpiPen ZyrTEC Allergy 10 MG Tablet 1 tablet Orally Once a daypredniSONE 10 MG Tablet 1 tablet with food or milk Orally 4 tabs for 3 days,3tabs for 3 days, 2 tabs for 3 days, and 1 tab for 3 daysProAir HFA 108 (90 Base) MCG/ACT Aerosol Solution 2 puffs as needed Inhalation every 4 hrsMedication List reviewed and reconciled with the patientNot-Taking/PRN EpiPen Not-Taking/PRN ZyrTEC Allergy 10 MG Tablet 1 tablet Orally Once a dayNot-Taking/PRN predniSONE 10 MG Tablet 1 tablet with food or milk Orally 4 tabs for 3 days,3tabs for 3 days, 2 tabs for 3 days, and 1 tab for 3 daysNot-Taking/PRN ProAir HFA 108 (90 Base) MCG/ACT Aerosol Solution 2 puffs as needed Inhalation every 4 hrsMedication List reviewed and reconciled with the patient * Allergies:?keflex: Alina Acosta k: hivesPork: itchybeef: flushingshellfish: anaphylaxisbrazil nuts: [id number] Hour Nasal Spraypeanutbutter: excemayes[Allergies Verified] Objective: * Vitals:?Ht: 66, Wt:186, BMI: 30.02, BP:92/60 weight is down 9 pounds since 10-19-23. * ???Past Orders: ???Lab:IRON PROFILE (Order D ate - 10/17/2024) (Collection Date - 10/17/2024) ? Value Reference Range ?Iron 74 30-160 - mcg/dL ?Total Iron Binding Capacity 230 228-428 - mcg/dL ?Percent Iron Saturation 32 15-50 - % ?Unsaturated Iron Binding 156 - ug/dL ???Lab:Lipid Panel (Order Da te - 10/17/2024) (Collection Date - 10/17/2024) ? Value Reference Range ?Triglycerides 65 <150 - mg/dL ?Cholesterol 212 H <200 - m g/dL ?LDL Cholesterol Calculated 129 H <100 - mg/dL ?HDL Cholesterol 70 >40 - mg/dL ???Lab:Vitamin D 25-OH Total (Order Date - 10/17/2024) (Collection Date - 10/17/2024) ? Value Reference Range ?Vitamin D 25-OH Total 39.4 >30 - ng/mL ???Lab:UA ClnCatch+Micro w/r flx Cult (Order Date - 10/17/2024) (Collection Date - 10/17/2024) ? Value Reference Range ?Color Urine Yellow - ?Appearance Urine Clear - ?PH 6.5 5.0-9.0 - ?Glucose Urine UA Negative Neg ative - mg/dL ?Urine Blood Negative Negative - ?Specific [place] - Urine 1.010 1.005-1.025 - ?Urine Protein Negative Neg-Tr edu - mg/dL ?Urine Ketones Negative Negati ve - mg/dL ?Nitrite Urine Negative Negati ve - ?Leukocyte Esterase Urine Negative Negative - ?RBC Urine 0-2 0-2 - /HPF ?WBC Urine 0-5 0-5 - /HPF ?Squamous Epithelial Cell Urine 0-2 0-2 - /HPF ?Bacteria Urine None Seen None Seen - ?Hyaline Casts Urine 0-2 0-2 - /LPF ???Lab:Complete Blood Count Auto Diff (Order Date - 10/17/2024) (Collection Date - 10/17/2024) ? Value Reference Range ?White Blood Count 4.8 4. 8-10.8 - X10*3/uL ?Red Blood Count 3.98 L 4.20 -5.50 - X10*6/uL ?Hemoglobin 12.2 12.0-16.0 - g/dl ?Hematocrit 37.3 37.0-47.0 - % ?Mean Corpuscular Volume 93.7 80.0-98.0 - fL ?Mean Corpuscular Hemoglobin 30.7 27.0-33.0 - pg ?Mean Corpuscular HGB Conc 32.7 31.0-35.0 - g/dl ?Red Cell Distribution Width 13.5 11.0-16.0 - % ?Platelet Count 195 160-4 00 - X10*3/uL ?Mean Platelet Volume 11.5 9.4-12.3 - fL ?Neutrophils Percent Auto 50.2 45-73 - % ?Imm Gran Pct Auto 0.2 0. 0-0.4 - % ?Lymphocytes Percent Auto 41.3 H 20-40 - % ?Monocytes Percent Auto 5.4 2-11 - % ?Eosinophils Percent Auto 2.5 0-4 - % ?Basophils Percent Auto 0.4 0-2 - % ?NRBC Pct Auto 0.0 0.0-0. 2 - /100WBC ?Neutrophils Absolute Auto 2.4 2.0-8.3 - x10*3/uL ?Imm Gran Abs Auto 0.01 0. 00-0.03 - X10*3/uL ?Lymphocytes Absolute Auto 2.0 1.2-4.9 - X10*3/uL ?Monocytes Absolute Auto 0.3 0.1-1.2 - X10*3/uL ?Eosinophils Absolute Auto 0.1 0.0-0.4 - X10*3/uL ?Basophils Absolute Auto 0.0 0.0-0.2 - X10*3/uL ?NRBC Abs Auto 0.000 0.0-0. 012 - X10*3/uL ???Lab:Comprehensive [place]. P ashly Fast (Order Date - 10/17/2024) (Collection Date - 10/17/2024) ? Value Reference Range ?Sodium 141 135-145 - mmo l/L ?Bilirubin Total 0.4 0.0- 1.0 - mg/dL ?Aspartate Amino Transferase 23 5-31 - U/L ?Alanine Aminotransferase 16 0-31 - U/L ?Total Protein 7.2 6.5-8. 0 - g/dL ?Albumin Level 3.9 3.5-5. 0 - g/dL ?Alkaline Phosphatase 77 39-117 - U/L ?Potassium 4.5 3.3-5.1 - mmol/L ?Chloride 107 96-108 - mm ol/L ?Carbon Dioxide 27 22-29 - mmol/L ?Anion Gap 12 12-20 - ?Blood Urea Nitrogen 14 9-16 - mg/dL ?Creatinine 0.75 0.5-1.4 - mg/dL ?Estimated Glomerular Filt Rate > 60 - ?Glucose Fasting 87 60-9 9 - mg/dL ?Calcium 9.0 8.4-10.2 - m g/dL * Examination: ???General Examination: ?GENERAL APPEARANCE:?well developed, well nourished, in no acute distress.?HEAD:?normocephalic, atraumatic.?EYES:?pupils equal, round, reactive to light and accommodation, sclera non-icteric.?EARS:?normal.?ORAL CAVITY:?mucosa moist.?THROAT:?clear.?NECK/THYROID:?neck supple, full range of motion, no cervical lymphadenopathy, no bruits.?SKIN:?warm and dry, no suspicious lesions.?HEART:?regular rate and rhythm, S1, S2 normal, no murmurs.?LUNGS:?clear to auscultation bilaterally.?BREASTS:?No mass, no lump.?ABDOMEN:?soft, nontender, nondistended, bowel sounds present, normal, no organomegaly , no masses palpable.?RECTAL EXAM:?done by insole beveler.?FEMALE GENITOURINARY:?done by insole beveler.?EXTREMITIES:?no clubbing, cyanosis, or edema.?NEUROLOGIC:?nonfocal, motor strength normal upper and lower extremities, sensory exam intact.? Assessment: * Assessment: 1.?Annual physical exam - Z0 0.00 (Primary)?2.?Mild intermittent asthma without complication - J45.20?3.?Vitamin D deficiency - E55.9?4.?Iron deficiency anemia, unspecified iron deficiency anemia type - D50.9?5.?Depression screening - Z13.31? Plan: * Treatment: 2.?Mild intermittent asthma without complication? Continue Flonase Allergy Relief Suspension, 50 MCG/ACT, 1 spray in each nostril, Nasally, Once a day;?Continue Singulair Tablet, 10 MG, 1 tablet in the evening, Orally, Once a day.?? Notes: doing great. no problems, will continue current regiment?? 3.?Vitamin D deficiency? Notes: good vit d level, will continue current regiment?? 4.?Iron deficiency anemia, u nspecified iron deficiency anemia type? Notes: resolved?? 5.?Depression screening? Notes: negative screen?? * Procedure Codes:? * * Sign off status: Completed true * Provider:?Anton Kathleen MD Date:?0 10/24/2024 Generated for Shiela perla/Ricci/eTransmitting on:?11/22/2024 12:05 PM EST History and Physical Notes * HPI (History of Present Illness) Category Sub-Category Detail Notes Category Not es Symptom(s) patient is a 59 yo female here for annual visit with review of recent labs and follow up of chronic issues. . has sore knee. found to have torn meniscuss , sore rt shoulder and at times arm gets numb Depression Screening PHQ-9 Little inte rest or pleasure in doing things: Not at all Feeling down, depressed, or hopeless: No t at all Trouble falling or staying asleep, or sl eeping too much: Not at all Feeling tired or having little energy: N ot at all Poor appetite or overeating: Not at all Feeling bad about yourself o r that you are a failure, or have let yourself or your family down: Not at all Trouble concentrating on thi ngs, such as reading the newspaper or watching television: Not at all Moving or speaking so slowly that other people could have noticed; or the opposite, being so fidgety or restless that you have been moving around a lot more than usual: Not at all Thoughts that you would be b trung off or of hurting yourself in some way: Not at all Total Score: 0 Interpretation and Intervention Depression Alma wright Findings: Negative Follow-Up for Depression: : review of PH Q-9 found negative result, no follow-up needed SDOH Questions SDOH Questions In the past year have you been worried about losing housing?: No In the past year have you or any family members you live with been unable to get any of the following when it was really needed? Check all that apply:: None Communication Needs Communication Needs Does the patient have a hearing impairment: No Does the patient have a vision impairmen t?: Yes ?If yes, what is the vision impairment?: Glasses Does the patient have a cognition impair ment?: No Examination Category Sub-Category Detail Notes Category Not es General Examination GENERAL APPEARANCE: well dev eloped, well nourished, in no acute distress HEAD: normocephalic, atrau matic EYES: pupils equal, round, reactive to light and accommodation, sclera non- icteric EARS: normal THROAT: clear NECK/THYROID: neck supple, full ra nge of motion, no cervical lymphadenopathy, no bruits HEART: regular rate and rhy thm, S1, S2 normal, no murmurs LUNGS: clear to auscultatio n bilaterally ABDOMEN: soft, nontender, non distended, bowel sounds present, normal, no organomegaly , no masses palpable NEUROLOGIC: nonfocal, motor stre ngth normal upper and lower extremities, sensory exam intact SKIN: warm and dry, no nichole picious lesions EXTREMITIES: no clubbing, cyanosi s, or edema BREASTS: No mass, no lump RECTAL EXAM: done by insole beveler FEMALE GENITOURINARY: done by insole beveler ORAL CAVITY: mucosa moist
--- OUTSIDE RECORDS SUMMARY | 2024-11-22 12:06 | XMS_ITS ---
Author Organization Anton Kathleen MD Address [address] [place] [phone] Care Team Providers Care Eye Surgeon Name Role Phone Anton Kathleen Primary Care Provider Results Component Value Reference Range Notes UA ClnCatch+Micro w/rflx Cul t (Not yet reviewed by provider) Interpretation: Performing Lab:[facility], [address] [place] [phone] Notes/Report: Urine, Clean Catch Color Urine Yellow Appearance Urine Clear PH 5.5 5.0-9.0 Glucose Urine UA Negative Negative mg/dL Urine Blood Negative Negative Specific [place] - Urine 1.015 1.005-1.025 Urine Protein Negative Neg-Trace mg/dL Urine Ketones Negative Negative mg/dL Nitrite Urine Negative Negative Leukocyte Esterase Urine Large (3+) Negative RBC Urine 0-2 0-2 /HPF WBC Urine >50 0-5 /HPF Squamous Epithelial Cell Urine 0-2 0-2 /HPF Bacteria Urine None Seen None Seen Hyaline Casts Urine 0-2 0-2 /LPF REASON FOR VISIT URINE CULTURE Encounters Encounter Location Date Provider Diagnosis Anton Kathleen MD [address] [place], [place] [phone] 11/22/2024 Anton Kathleen UTI (urinary tract infection) N39.0 Assessments Encounter Date Diagnosis (ICD Code) Assessment Notes Treatment Notes Treatment Clinical Notes Section Notes 11/22/2024 UTI (urinary tract infection) (ICD-10 - N39.0) Plan Of Treatment Pending Test Test Name Order Date UA ClnCatch+Micro w/rflx Cult 11/22/2024 Next Appt Details Provider Name:Anton jc, 10/20/2025 07:30:00 AM, [address] [facility], [address] [facility], [place], [place], [phone], Provider Name:Anton jc, 10/27/2025 08:00:00 AM, [address] [place] [address], Suite [facility], [place], [place], [phone], Progress Notes * Kierra DE LA CRUZ GDOB:1964 (59 yo F)Acc No.[id number]:11/22/2024 Progress Note Patient:?Kierra DE LA CRUZ Jordan Provider:?Anton Kathleen MD :1965???Age:59 Y???Sex:Female D ate:11/22/2024 Address:[address] [place], [place] [phone] Subjective: * Chief Complaints: * ???1. URINE CULTURE. * Medical History:? Objective: * Vitals:? Assessment: * Assessment: 1.?UTI (urinary tract infect ion) - N39.0??? Plan: * Treatment: * * The named appointment provid er may or may not be the originator of this progress note, and it is not deemed complete until electronically signed by the appointment provider. Sign off status: Pending * Provider:?Anton Kathleen MD Date:?0 11/22/2024 Generated for Shiela perla/Ricci/Burakitting on:?11/22/2024 12:05 PM EST
--- OUTSIDE RECORDS SUMMARY | 2024-11-22 12:06 | XMS_ITS | Patient Health Record ---
Author Organization Anton Kathleen MD Address [address] [place], [place] [id number] Care Team Providers Care Financial Analyst Name Role Phone Anton Kathleen Primary Care Provider [phone] Allergies Allergen (clinical drug ingredient) Drug/Non Drug Allergy documented on EMR Reaction Allergy Type Onset Date Status Porcine derived substance (substance) Pork (uncoded) itchy Allergy Acti ve azithromycin Z Donovan (uncoded) hives Allergy A ctive keflex (uncoded) welts Allergy Act mello 12 Hour Nasal [place] Unknown Drug Allergy Active peanutbutter (uncoded) excema Allergy Active brazil nuts (uncoded) anaphylaxis Allergy Active Shellfish (FN) shellfish (uncoded) anaphylaxis Allergy Active Beef derivative (FN) beef (uncoded) flushing Allergy Active Results Component Value Reference Range Notes Hold Lav - Possible Hematolo gy Reviewed date:10/17/2024 05:59:29 PM Interpretation: Performing Lab:[facility], [address] [place] [phone] Notes/Report: Hold Lav - Possible Hematology SEE NOTE Specimen will be held untested for 8 hours. Call Hematology if testing is desired. Hold Gold Reviewed date:10/17/2024 05:59:36 PM Interpretation: Performing Lab:[facility], [address] [place] [phone] Notes/Report: Andre Downey See Note Specimen held untested for 24 hours; Call to request Chemistry testing. Complete Blood Count Auto Di ff Reviewed date:10/17/2024 06:04:04 PM Interpretation: Performing Lab:[facility], [address] [place] [phone] Notes/Report: White Blood Count 4.8 4.8-10.8 X10*3/uL [...] 0.0-0.2 /100WBC Neutrophils Absolute Auto 2.4 2.0-8.3 x10*3/uL Imm Gran Abs Auto 0.01 0.00-0.03 X10*3/uL Lymphocytes Absolute Auto 2.0 1.2-4.9 X10*3/uL Monocytes Absolute Auto 0.3 0.1-1.2 X10*3/uL Eosinophils Absolute Auto 0.1 0.0-0.4 X10*3/uL Basophils Absolute Auto 0.0 0.0-0.2 X10*3/uL NRBC Abs Auto 0.000 0.0-0.012 X10*3/uL Comprehensive [place]. Panel Fa Reviewed date:10/17/2024 06:00:16 PM Interpretation: Performing Lab:[facility], [address] [place] [phone] Notes/Report: Sodium 141 135-145 mmol/L Potassium 4.5 [...] PROFILE Reviewed date:10/17/2024 05:58:14 PM Interpretation: Performing Lab:[facility], [address] [place] [phone] Notes/Report: Iron 74 30-160 mcg/dL Total Iron Binding Capacity 230 228-428 mcg/dL Percent Iron Saturation 32 15-50 % Unsaturated Iron Binding 156 Lipid Panel Reviewed date:10/17/2024 05:59:51 PM Interpretation: Performing Lab:[facility], [address] [place] [phone] Notes/Report: Triglycerides 65 <150 mg/dL Desirable Triglyceride: [...] Total Reviewed date:10/17/2024 05:57:41 PM Interpretation: Performing Lab:[facility], [address] [place] [phone] Notes/Report: Vitamin D 25-OH Total 39.4 >30 [...] t Reviewed date:10/17/2024 05:58:03 PM Interpretation: Performing Lab:[facility], [address] [place] [phone] Notes/Report: Urine, Clean Catch Color Urine Yellow Appearance Urine Clear PH 6.5 5.0-9.0 Glucose Urine UA Negative Negative mg/dL Urine Blood Negative Negative Specific Butler - Urine 1.010 1.005-1.025 Urine Protein Negative Neg-Trace mg/dL Urine Ketones Negative Negative mg/dL Nitrite Urine Negative Negative Leukocyte Esterase Urine Negative Negative RBC Urine 0-2 0-2 /HPF WBC Urine 0-5 0-5 /HPF Squamous Epithelial Cell Urine 0-2 0-2 /HPF Bacteria Urine None Seen None Seen Hyaline Casts Urine 0-2 0-2 /LPF MM tomosynthesis screening B I Reviewed date:11/01/2024 04:33:46 PM Interpretation: Performing Lab: Notes/Report: [address] [place] [address] Mammography Report Signed Patient: Kierra Mitchell MR#: [id number] 120 : 1965 Acct:[id number] Age/Sex: 59 / F ADM Date: 10/24/24 Loc: MAMMO Attending Dr: Anton Kathleen MD Ordering Physician: Anton Kathleen MD Results: 1Ne gative Date of Service: 10/24/24 Follow Up: 1 Year From Orig inal Mammogram Procedure(s): MM tomosynthesis screening BI Accession Number(s): [id number] cc: Anton Kathleen MD EXAMINATION: MM SCREENING DIGITAL BREAST TOMOSYNTHESIS, BILATERAL CLINICAL INFORMATION: Screening. Asymptomatic. COMPARISON: Mammography: Comparison is made with available priors TECHNIQUE: Digital breast mammography with tomosynthesis is performed in both the craniocaudal and mediolateral oblique views along with computer-aided detection (CAD). FINDINGS: There are scattered areas of fibroglandular density (ACR BI-RADS breast composition Category b). There are no significant masses, abnormal calcifications, or other abnormalities. MM/MM tomosynthesis screening BI IMPRESSION: No mammographic evidence of malignancy. ASSESSMENT: BI-RADS BI-RADS 1 - Negative RECOMMENDATION: Routine annual mammography screening. 1 year F/U This examination should not preclude the clinical evaluation of a suspicious palpable abnormality. This patient's information was entered into a reminder system with a target due date for their next mammogram. Electronically signed by: Maddie Palomo DO 10/31/2024 06:04 PM [facility] Dictated By: Maddie Palomo DO Signed By: <Electronically signed by Maddie Palomo DO in OV> 10/31/24 1804 DD/ 0745 TD/TT: 10/24/24 0759 Tug Boat Captain: [facility] [address] [place] [address] Mammography Report Signed Patient: Kierra Mitchell MR#: [id number] 120 : 1965 Acct:[id number] Age/Sex: 59 / F ADM Date: 10/24/24 Loc: MAMMO Attending Dr: Anton Kathleen MD Ordering Physician: Anton Kathleen MD Results: 1Ne gative Date of Service: 10/24/24 Follow Up: 1 Year From Orig ina Mammogram Procedure(s): MM tomosynthesis screening BI Accession Number(s): [id number] cc: Anton Kathleen MD EXAMINATION: MM SCREENING DIGITAL BREAST TOMOSYNTHESIS, BILATERAL CLINICAL INFORMATION: Screening. Asymptomatic. COMPARISON: Mammography: Comparison is made with available priors TECHNIQUE: Digital breast mammography with tomosynthesis is performed in both the craniocaudal and mediolateral oblique views along with computer-aided detection (CAD). FINDINGS: There are scattered areas of fibroglandular density (ACR BI-RADS breast composition Category b). There are no significant masses, abnormal calcifications, or other abnormalities. MM/MM tomosynthesis screening BI IMPRESSION: No mammographic evidence of malignancy. ASSESSMENT: BI-RADS BI-RADS 1 - Negative RECOMMENDATION: Routine annual mammography screening. 1 year F/U This examination should not preclude the clinical evaluation of a suspicious palpable abnormality. This patient's information was entered into a reminder system with a target due date for their next mammogram. Electronically herman d by: Maddie Palomo DO 10/31/2024 06:04 PM [facility] Dictated By: Maddie Palomo DO Signed By: <Electronically signed by Maddie Palomo DO in OV> 10/31/24 1804 DD/ 0745 TD/TT: 10/24/24 0759 Tug Boat Captain: [facility] ClNereida+Micro w/rflx Cul t (Not yet reviewed by provider) Interpretation: Performing Lab:[facility], [address] [place] [phone] Notes/Report: Urine, Clean Catch Color Urine Yellow Appearance Urine Clear PH 5.5 5.0-9.0 Glucose Urine UA Negative Negative mg/dL Urine Blood Negative Negative Specific Butler - Urine 1.015 1.005-1.025 Urine Protein Negative Neg-Trace mg/dL Urine Ketones Negative Negative mg/dL Nitrite Urine Negative Negative Leukocyte Esterase Urine Large (3+) Negative RBC Urine 0-2 0-2 /HPF WBC Urine >50 0-5 /HPF Squamous Epithelial Cell Urine 0-2 0-2 /HPF Bacteria Urine None Seen None Seen Hyaline Casts Urine 0-2 0-2 /LPF Reason For Referral No Information Medications Medication SIG (Take, Route, Frequency, Duration) [...] for 90 days 06/20/2011 Not-Taking EpiPen Not-Taking Immunizations Vaccine Route Administration Date Status Comme nts Fluarix Quadrivalent IM Intramuscular 09/15/2019 Administe red Fluarix Quadrivalent Unknown 07/24/2020 Administered Co stco SARS-COV-2 Moderna Unknown 01/05/2021 Administered SARS-COV-2 Moderna Unknown 02/02/2021 Administered Flu Vaccine Unknown 09/17/2015 Refused Fluarix Quadrivalent Unknown 11/03/2016 Refused PPSV23 (Pnemovax) Unknown 02/28/2019 Refused Fluarix Quadrivalent Unknown 03/10/2019 Refused Fluarix Quadrivalent - 150 Unknown 10/19/2023 Refused Social History Tobacco Use: Social History Observation [...] ast year? No Points 0 Interpretation Negative Problems Problem Type SNOMED Code ICD Code Onset Dates Problem Status W/U Status Risk Notes Problem 02637775 Vitamin D deficiency (E55.9) Active confirmed Problem 314077048 Mild intermitten t asthma without complication (J45.20) Active confirmed Problem 01786420 Iron deficiency anemia, unspecified iron deficiency anemia type (D50.9) Active confirmed Vital Signs Blood pressure diastolic 60 mm Hg 10/24/2024 jaime ght is down 9 pounds since 10-19-23 Height 66 in 10/24/2024 weight is down 9 pounds since 10-19-23 Blood pressure systolic 92 mm Hg 10/24/2024 nolberto ht is down 9 pounds since 10-19-23 Weight 186 lbs 10/24/2024 weight is down 9 pounds since 10-19-23 BMI 30.02 kg/m2 10/24/2024 weight is down 9 pounds since 10-19-23 Encounters Encounter Location Date Provider Diagnosis Anton Katlheen MD [address] [place] [id number] 10/17/2024 Anton Kathleen Routine physicl lab exam Z00.00 ; Vitamin D deficiency E55.9 and Iron deficiency anemia, unspecified iron deficiency anemia type D50.9 Anton Kathleen MD [address] [place] [address] Drive [address] [place] [id number] 11/22/2024 Anton Kathleen UTI (urinary tract infection) N39.0 Anton Kathleen MD [address] [place] [address] Drive [address] [place] [id number] 10/24/2024 Anton Kathleen Mild intermittent asthma without complication J45.20 ; Annual physical exam Z00.00 ; Vitamin D deficiency E55.9 ; Iron deficiency anemia, unspecified iron deficiency anemia type D50.9 and Depression screening Z13.31 Assessments Encounter Date Diagnosis (ICD Code) Assessment Notes Treatment Notes Treatment Clinical Notes Section Notes 10/17/2024 Routine physicl lab exam (ICD-10 - Z00.00) 10/17/2024 Vitamin D deficiency (ICD-10 - E55.9) 11/22/2024 UTI (urinary tract infection) (ICD-10 - N39.0) 10/24/2024 Mild intermittent asthma without complication (ICD-10 - J45.20) doing great. no problems, will continue current regiment 10/24/2024 Annual physical exam (ICD-10 - Z00.00) labs reviewed and discussed with patient 10/17/2024 Iron deficiency anemia, unspecified iron deficiency anemia type (ICD-10 - D50.9) 10/24/2024 Vitamin D deficiency (ICD-10 - E55.9) good vit d level, will continue current regiment 10/24/2024 Iron deficiency anemia, unspecified iron deficiency anemia type (ICD-10 - D50.9) resolved 10/24/2024 Depression screening (ICD-10 - Z13.31) negative screen Plan Of Treatment Pending Test Test Name Order Date Electrocardiogram (EKG) 02/18/2018 XR DEXA axial skeleton 10/14/2021 UA ClnCatch+Micro w/rflx Cult 11/22/2024 Next Appt Details Provider Name:Anton Hernanedz ier, 10/20/2025 07:30:00 AM, [address] [place] [address], [address], [place], [place], [phone], Provider Name:Anton Hernandez ier, 10/27/2025 08:00:00 AM, [address] [facility], [address], [place], [place], [phone], Insurance Providers Payer Name Payer Address Payer Phone Subscriber Number Group Number Insured Name Patient Relationship to Insured Coverage Start Date Coverage End Date TALIA RYDER [address] [place] Yeh [phone] [id number] Kierra Mitchell Self - patient is the insured 4 Medical (General) History Medical History History ICD Code colonoscopy 07/10/[address] Young - repeat 10 years History of edema Z87.898 History of edema
== END 2024-11-22 10:49 | disposition home or self-care (01) ==
LOC: HO.LNP 10:48
PROVIDERS: Visit Provider Internal Medicine
DX: N39.0 Urinary tract infection, site not specified (principal)
CPT/HCPCS: 81001; 87086

== ENCOUNTER 2024-12-11 20:29 | Emergency (ER) | payer OTHER, SELFPAY ==
--- NOTE | ~2024-12-11 | XR_ITS ---
CLINICAL HISTORY: SOB 1 view chest x-ray Comparison: None Findings: Possible tiny calcified granulomas in the upper lungs. No consolidation or effusion. Prominent cardiac silhouette. No acute fracture. IMPRESSION: 1. No acute findings. This document has been electronically signed by: Carlos Huitron MD on 12/11/2024 21:25:25
[2024-12-11 20:32] VITALS: BP 133/106; PULSE 130; RESP 20; TEMP 36.2; O2SAT 98; BMI 30.7
--- NOTE | 2024-12-11 20:37 | ECG_ITS ---
Test Reason : SOB Blood Pressure : */* mmHG Vent. Rate : 97 BPM Atrial Rate : 97 BPM P-R Int : 152 ms QRS Dur : 78 ms QT Int : 380 ms P-R-T Axes : 62 42 42 degrees QTcB Int : 482 ms Normal sinus rhythm Possible Left atrial enlargement Nonspecific ST and T wave abnormality Abnormal ECG No previous ECGs available Referred By: Cam Enciso Electronically Signed By: MARISA HOWE MD
--- NOTE | 2024-12-11 20:44 | ED.GENADULT ---
HPI - General Adult General Chief complaint: Dyspnea Stated complaint: sob/asthmatic Time Seen by Provider: 12/11/24 21:03 Source: patient Mode of arrival: ambulatory Limitations: no limitations History of Present Illness ED Provider: Dr. Christine Zamora HPI narrative: Patient comes to the emergency room complaining of shortness of breath that started while she was cooking. Patient states that she has a lot of foot allergies. Patient states that usually some foods or cold weather triggered her asthma. Patient has not had an asthma exacerbation for several years. Patient states that she used an inhaler that had already . Patient took 25 mg of Benadryl prior to arrival. Related Data Previous Rx's ?Medication ?Instructions ?Recorded albuterol sulfate 90 mcg/actuation 2 puff inhalation Q4-6H PRN 12/11/24 aerosol inhaler shortness of breath or wheezing #6.7 grams prednisone 50 mg tablet 50 mg PO DAILY #3 tabs 12/11/24 Allergies Allergy/AdvReac Type Severity Reaction Status Date / Time enviornmental Allergy Unknown Unknown Uncoded 12/11/24 20:34 pork Allergy Unknown Unknown Uncoded 12/11/24 20:34 Review of Systems Review of Systems: Constitutional : No Weight loss, No Fever, No Chills, No Night Sweats, No Fatigue, No Malaise ENT/Mouth : No Hearing loss, No Ear Pain, No Nasal Congestion, No Sinus Pain, No Hoarseness, No sore throat, No Rhinorrhea, No Swallowing Difficulty Eyes: No Eye Pain, No Swelling, No Redness, No Foreign Body, No Discharge, No Vision Changes Cardiovascular : No Chest Pain, No SOB, No Dyspnea on Exertion, No Orthopnea, No Edema, No Palpitations Respiratory : No Cough, No Sputum, complaining of Wheezing, No Smoke Exposure, complaining of Dyspnea Gastrointestinal : No Nausea, No Vomiting, No Diarrhea, No Constipation, No abdominal Pain, No Hematochezia, No Melena Genitourinary : no irregular bleeding, No Dysuria, No Urinary Frequency, No Hematuria, No Urinary Incontinence, No Urgency, No Flank Pain, No Urinary Flow Changes, No Hesitancy Musculoskeletal : No joint pain, No Myalgias, No Joint Swelling Skin : No Skin Lesions, No rash Neuro : No Weakness, No Numbness, No Paresthesias, No Loss of Consciousness, No Dizziness, No Headache Psych : Complaining of anxiety, No Depression, No SI/HI/AH/VH, No Social Issues, Heme/Lymph: No Bruising, No Bleeding,No Lymphadenopathy Endocrine : No Polyuria, No Polydipsia, No Temperature Intolerance [facility] Social History Social History Smoked in Last 30 Days: No Use of substances other than those prescribed or required for medical reasons: No Advance Directives: No Advance Directives Information Provided: Yes Do you have a plan to hurt others: No Plan Patient : No Physical Exam ED Vital Signs: Vital Signs - 24 hr 12/11/24 20:32 12/11/24 21:03 12/11/24 21:45 Temperature 97.1 F Pulse Rate 130 H 97 Respiratory Rate 20 20 Blood Pressure 133/106 H Pulse Oximetry 98 98 100 Oxygen Delivery Method Room Air Room Air 12/11/24 21:45 12/11/24 22:21 Temperature 97.5 F Pulse Rate 82 Respiratory Rate 17 Blood Pressure 111/58 L Pulse Oximetry 100 99 Oxygen Delivery Method Room Air Room Air BMI result Body Mass Index 30.7 Const Other: Appearance: Alert. Oriented X3. No acute distress. Eyes: Pupils equal, round and reactive to light. ENT: Pharynx normal. Normal uvula, normal oral mucosa, no angioedema Neck: Normal inspection. Neck supple. No lymph nodes noted. No crepitus CVS: Normal heart rate and rhythm. Pulses normal. Normal S1 and S2 Respiratory: No respiratory distress. Breath sounds normal. No Wheezing. No rales Abdomen: Soft and nontender. No rigidity. No distention. Skin: Skin warm and dry. Normal skin color. Normal skin turgor. Extremities: No lower extremity edema. No Lacerations. No Rash Neuro: Oriented X 3. No motor deficit. No sensory deficit. Moving all extremities. No slurred speech. CN 2 through 12 grossly intact Psych: calm, cooperative anxious Medications Administered Discontinued Medications Generic Name Dose Route Start Last Admin Trade Name Freq PRN Reason Stop Dose Admin Diphenhydramine HCl 25 mg 12/11/24 21:09 12/11/24 21:15 Diphenhydramine Hcl 25 Mg Capsule PO 12/11/24 21:10 25 mg ONCE ONE Administration Famotidine 20 mg 12/11/24 21:09 12/11/24 21:15 Famotidine 20 Mg Tablet PO 12/11/24 21:10 20 mg ONCE ONE Administration Lorazepam 1 mg 12/11/24 21:10 12/11/24 21:15 Lorazepam 1 Mg Tablet PO 12/11/24 21:11 1 mg ONCE ONE Administration Prednisone 60 mg 12/11/24 21:09 12/11/24 21:15 Prednisone 20 Mg Tablet PO 12/11/24 21:10 60 mg ONCE ONE Administration Medical Decision Making Medical Decision Making [facility] Narrative: RME: 59 yold female presents to ED for shortness of breath while cooking for family. Patient believes asthma was triggered. Patient denies any facial allergy. Patient took Benadryl. Lungs are clear. Negative for any lip swelling or uvula swelling. Lungs are clear. EKG labs x-ray ordered. Patient is speaking full sentences, vitals normal, oxygen saturation 99% on room air. 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 12/11/24 20:51 12/11/24 20:51 Labs: Lab Results 12/11/24 Range/Units 20:51 WBC 6.8 (4.8-10.8) X10*3/uL RBC 3.94 L (4.20-5.50) X10*6/uL Hgb 12.3 (12.0-16.0) g/dl Hct 36.0 L (37.0-47.0) % MCV 91.4 (80.0-98.0) fL MCH 31.2 (27.0-33.0) pg MCHC 34.2 (31.0-35.0) g/dl RDW 13.6 (11.0-16.0) % Plt Count 204 (160-400) X10*3/uL MPV 10.5 (9.4-12.3) fL Immature Gran % (Auto) 0.1 (0.0-0.4) % Neut % (Auto) 46.4 (45-73) % Lymph % (Auto) 46.2 H (20-40) % Real % (Auto) 5.3 (2-11) % Eos % (Auto) 1.6 (0-4) % Baso % (Auto) 0.4 (0-2) % Lymph # (Auto) 3.1 (1.2-4.9) X10*3/uL Real # (Auto) 0.4 (0.1-1.2) X10*3/uL Eos # (Auto) 0.1 (0.0-0.4) X10*3/uL Baso # (Auto) 0.0 (0.0-0.2) X10*3/uL Abs Immat Gran (auto) 0.01 (0.00-0.03) X10*3/uL Absolute Neuts (auto) 3.1 (2.0-8.3) x10*3/uL Absolute Nucleated RBC 0.000 (0.0-0.012) X10*3/uL Nucleated RBC % (auto) 0.0 (0.0-0.2) /100WBC PT 10.0 L (10.9-12.4) SEC INR 0.9 (0.9-1.1) APTT 29.6 (26.0-36.8) SEC Sodium 140 (135-145) mmol/L Potassium 3.4 D (3.3-5.1) mmol/L Chloride 104 (96-108) mmol/L Carbon Dioxide 25 (22-29) mmol/L Anion Gap 14 (12-20) BUN 16 (9-16) mg/dL Creatinine 0.84 (0.5-1.4) mg/dL Estim Creat Clear Calc 78.7 Estimated GFR > 60 Random Glucose 151 H (60-115) mg/dL Calcium 9.3 (8.4-10.2) mg/dL Total Bilirubin 0.2 (0.0-1.0) mg/dL AST 24 (5-31) U/L ALT 21 (0-31) U/L Alkaline Phosphatase 82 (39-117) U/L Troponin I High Sens < 2.7 (<3.5-17.0) ng/L B-Natriuretic Peptide 19 (<100) pg/mL Total Protein 7.9 (6.5-8.0) g/dL Albumin 4.2 (3.5-5.0) g/dL Independent Interpretation I performed an independent interpretation of an: Plain X-Ray Radiology Impression Discussion of test interpretation with radiology: I have reviewed the radiologist's reading. Radiologist Impression: Possible tiny calcified granulomas in the upper lungs. No consolidation or effusion. Prominent cardiac silhouette. No acute fracture. IMPRESSION: 1. No acute findings. Critical Care Time Critical Care Time Critical Care Time: Yes Total Critical Care Time: 45 Attestation: I have personally provided critical care time. Time includes review of lab data, radiology results, discussion with consultants, and monitoring for potential decompensation. Intervention performed as documented. Discharge Plan Discharge Clinical Impression: Allergic reaction Patient Disposition: Home, Self-Care Instructions: General Allergic Reaction (ED) Additional Instructions: Please follow-up with your primary care physician tomorrow. If you have any worsening or new symptoms, please return to the emergency room or call 911 Prescriptions: New albuterol sulfate 90 mcg/actuation HFA aerosol inhaler 2 puff inhalation Q4-6H PRN (Reason: shortness of breath or wheezing) Qty: 6.7 0RF prednisone 50 mg tablet 50 mg PO DAILY Qty: 3 0RF Interventions: ED Discharge Assessment Last Done: 12/11/24 22:21 Discharge Date/Time: 12/11/24 22:29 Print Language: Latvian
[2024-12-11 20:56] LABS: MANUAL DIFF FLAG NO
[2024-12-11 20:57] LABS: Basophils Percent Auto 0.4 % (0-2); Eosinophils Absolute Auto 0.1 X10*3/uL (0.0-0.4); Eosinophils Percent Auto 1.6 % (0-4); Hemoglobin 12.3 g/dl (12.0-16.0); Imm Gran Abs Auto 0.01 X10*3/uL (0.00-0.03); Imm Gran Pct Auto 0.1 % (0.0-0.4); Lymphocytes Absolute Auto 3.1 X10*3/uL (1.2-4.9); Lymphocytes Percent Auto 46.2 % (20-40); Mean Corpuscular HGB Conc 34.2 g/dl (31.0-35.0); Mean Corpuscular Hemoglobin 31.2 pg (27.0-33.0); Mean Corpuscular Volume 91.4 fL (80.0-98.0); Mean Platelet Volume 10.5 fL (9.4-12.3); Monocytes Absolute Auto 0.4 X10*3/uL (0.1-1.2); Monocytes Percent Auto 5.3 % (2-11); Neutrophils Absolute Auto 3.1 x10*3/uL (2.0-8.3); Neutrophils Percent Auto 46.4 % (45-73); Platelet Count 204 X10*3/uL (160-400); Red Blood Count 3.94 X10*6/uL (4.20-5.50); Red Cell Distribution Width 13.6 % (11.0-16.0); White Blood Count 6.8 X10*3/uL (4.8-10.8)
--- NOTE | 2024-12-11 21:01 | PC.NURSE ---
pt a&ox4, respirations even and unlabored. pt reports prior to arrival she was cooking salmon which she states she is allergic to, when she developed sudden wheezing and shortness of breath. pt reports she took benedryl and her rescue inhaler with no relief. pt lung sounds clear bilaterally, nsr on tele 88-90bpm, and speaking in full clear sentences.
[2024-12-11 21:03] VITALS: PULSE 97; RESP 20; O2SAT 98
[2024-12-11 21:09] LABS: INTERNATIONAL NORM RATIO 0.9 (0.9-1.1)
[2024-12-11 21:11] LABS: Alanine Aminotransferase 21 U/L (0-31); Albumin Level 4.2 g/dL (3.5-5.0); Alkaline Phosphatase 82 U/L (39-117); Anion Gap 14 (12-20); Aspartate Amino Transferase 24 U/L (5-31); Bilirubin Total 0.2 mg/dL (0.0-1.0); Blood Urea Nitrogen 16 mg/dL (9-16); Calcium 9.3 mg/dL (8.4-10.2); Carbon Dioxide 25 mmol/L (22-29); Chloride 104 mmol/L (96-108); Creatinine Clr Calc Pharmacy 78.7; Estimated Glomerular Filt Rate > 60; Glucose Random 151 mg/dL (60-115); Potassium 3.4 mmol/L (3.3-5.1); Sodium 140 mmol/L (135-145); Total Protein 7.9 g/dL (6.5-8.0)
[2024-12-11 21:12] LABS: Partial Thromboplastin Time 29.6 SEC (26.0-36.8)
[2024-12-11] MEDS: diphenhydrAMINE HCL 25 MG CAPSULE PO (21:15)
[2024-12-11] MEDS: LORazepam 1 MG TABLET PO (21:15)
[2024-12-11] MEDS: predniSONE 20 MG TABLET 60 MG PO (21:15)
[2024-12-11] MEDS: Famotidine 20 MG TABLET PO (21:15)
[2024-12-11 21:17] LABS: B Type Natriuretic Peptide 19 pg/mL (<100)
[2024-12-11 21:18] LABS: Troponin-I High Sensitivity < 2.7 ng/L (<3.5-17.0)
--- NOTE | 2024-12-11 21:44 | PC.NURSE ---
this rn did walking o2 sat with pt, pt 100% on room air with ambulation.
[2024-12-11 21:45] VITALS: O2SAT 100
[2024-12-11 22:21] VITALS: BP 111/58; PULSE 82; RESP 17; TEMP 36.4; O2SAT 99
== END 2024-12-11 22:29 | disposition home or self-care (01) ==
PROVIDERS: Physician Assistant; Emergency Provider Emergency Medicine; PCP Internal Medicine
DX: R06.02 Shortness of breath (principal); R94.31 Abnormal electrocardiogram [ECG] [EKG]; Z79.899 Other long term (current) drug therapy
CPT/HCPCS: 36415; 71045; 80053; 83880; 84484; 85025; 85610; 85730; 93005; 99283; 99285

== ENCOUNTER → 2024-12-11 20:37 | Outpatient (BNV) | payer OTHER, SELFPAY | PROVIDERS: Emergency Provider Emergency Medicine; PCP Internal Medicine; Visit Provider Internal Medicine Cardiovascular Disease | DX: R06.02 Shortness of breath (principal); R94.31 Abnormal electrocardiogram [ECG] [EKG] | CPT/HCPCS: 93010 ==

== ENCOUNTER → 2024-12-11 20:38 | Outpatient (BNV) | payer OTHER, SELFPAY | PROVIDERS: Emergency Provider Emergency Medicine; PCP Internal Medicine; Visit Provider Radiology Diagnostic Radiology | DX: R06.09 Other forms of dyspnea (principal); R06.02 Shortness of breath | CPT/HCPCS: 71045 ==